=== PATIENT | male | born 1985 | race Caucasian/White ===

== ENCOUNTER 2016-11-02 01:38 | Emergency (ER) | payer OTHER ==
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
[2016-11-02 02:29] VITALS: BP 121/87; PULSE 91; TEMP 98.4; BMI 24.4
== END 2016-11-02 02:47 | disposition home or self-care (01) ==
LOC: JER 01:38
DX: J70.5 Respiratory conditions due to smoke inhalation (principal); S46.912A Strain of unspecified muscle, fascia and tendon at shoulder and upper arm level, left arm, initial encounter; M79.662 Pain in left lower leg; X02.1XXA Exposure to smoke in controlled fire in building or structure, initial encounter; Y93.89 Activity, other specified; Y92.89 Other specified places as the place of occurrence of the external cause; Y99.0 Civilian activity done for income or pay
CPT/HCPCS: 99281-25

== ENCOUNTER 2018-06-16 15:46 | Emergency (ER) | payer BC, OTHER ==
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
[2018-06-16] MEDS ORDERED: IBUPROFEN 400 MG TABLET (FP) PO ONE ×2 (15:54→15:59)
[2018-06-16 15:57] VITALS: BP 133/84; PULSE 79; TEMP 98.4; BMI 24.7
[2018-06-16] MEDS ORDERED: DIPHTH,PERTUSS(ACELL),TET 0.5 ML DISP.SYRIN IM ONE (16:03)
== END 2018-06-16 16:40 | disposition home or self-care (01) ==
LOC: FER 15:46
DX: T25.021A Burn of unspecified degree of right foot, initial encounter (principal); W22.8XXA Striking against or struck by other objects, initial encounter; Y93.89 Activity, other specified; Y92.89 Other specified places as the place of occurrence of the external cause
CPT/HCPCS: 99283-25

== ENCOUNTER 2018-06-17 20:37 | Emergency (ER) | payer BC, OTHER ==
[2018-06-17 20:46] VITALS: BP 148/71; PULSE 77; TEMP 98.3; BMI 24.1
--- NOTE | 2018-06-17 20:48 | PDOC ---
History of Present Illness - General History Source: Patient Exam Limitations: No Limitations - History of Present Illness Initial Comments: 06/17/18 21:12 The patient is a 33 year old male, with no significant PMH, who presents to the emergency department complaining of possible Lyme disease. The patient notes a red te-moak with a red dot in the center located to the left hand for the past few days. The patient denies pruritus or pain to the left hand. The patient denies chest pain, shortness of breath, headache and dizziness. Denies fever, chills, nausea, vomit. PAST MEDICAL HISTORY: no significant history PAST SURGICAL HISTORY: no significant history FAMILY HISTORY: no pertinent history SOCIAL HISTORY: Pt lives with family and is employed. MEDICATIONS: reviewed ALLERGIES: As per nursing notes Adult ROS General: No fevers or chills, no weakness, no weight loss HEENT: No change in vision. No sore throat,. No ear pain CardioVascular: No chest pain or shortness of breath Respiratory:No cough, or wheezing. Gastrointestinal: no nausea, vomiting, diarrhea or constipation, No rectal bleeding Genitourinary: No dysuria, hematuria, or frequency Musculoskeletal: No joint or muscle pain or swelling Neurologic: No headache, vertigo, dizziness or loss of consciousness Psychiatric: nor depression Skin: +Red rodrigo to left hand. Endocrine: no increased thirst or abnormal weight change Allergic: no skin or latex allergy All other systems reviewed and normal Basic PE GENERAL: The patient is awake, alert, and fully oriented, in no acute distress. HEAD: Normal with no signs of trauma. EYES: Pupils equal, round and reactive to light, extraocular movements intact, sclera anicteric, conjunctiva clear. EXTREMITIES: Normal range of motion, no edema. NEUROLOGICAL: Normal speech, normal gait. PSYCH: Normal mood, normal affect. SKIN: + Left palm small well defined te-moak approximately 1 cm in diameter with a small red dot in the center. No tenderness, swelling or raised component to it. Appears to be an imprint of an object. <Sandhya Jackson - Last Filed: 06/17/18 21:13> - General History Source: Patient Exam Limitations: No Limitations - History of Present Illness Initial Comments: 06/17/18 21:14 A portion of this note was documented by scribe services under my direction. I have reviewed the details of the note, within reason, and agree with the documentation. The case summary and management plan written by me. Assessment and plan: This is a 33-year-old male who comes in with a well- defined imprint type impression of his left palm. Patient said it is been there approximately a half hour and he just noticed it. He said there was no pain no discomfort no itching and no history of a tick bite. It does have a bulls eye appearance however it is so small and on his palm that it appears to be more an imprint of an object. A Lyme titer was sent just in case however I'm not starting him on doxycycline as it is very unlikely that he would have a tick on his palm long enough to give him Lyme disease without him noticing it. Patient was discharged home with follow-up with his doctor for the results of his Lyme test <Oma Ho I - Last Filed: 06/17/18 21:15> - General Chief Complaint: Redness To Affected Area Stated Complaint: RED RODRIGO/REDNESS ON LEFT HAND Time Seen by Provider: 06/17/18 20:39 Past History <Sandhya Jackson - Last Filed: 06/17/18 21:13> - Past Medical History COPD: No - Immunization History Td Vaccination: (2016) - Suicide/Smoking/Psychosocial Hx Smoking History: Never smoked Have you smoked in the past 12 months: No Hx Alcohol Use: No Drug/Substance Use Hx: No Substance Use Type: None <Oma Ho I - Last Filed: 06/17/18 21:15> - Past Medical History Allergies/Adverse Reactions: Allergies Allergy/AdvReac Type Severity Reaction Status Date / Time No Known Allergies Allergy Verified 06/17/18 20:38 Home Medications: Ambulatory Orders NK [No Known Home Medication] 04/06/15 *Physical Exam - Vital Signs Last Vital Signs Temp Pulse Resp BP Pulse Ox 98.3 F 77 18 148/71 97 06/17/18 20:37 06/17/18 20:37 06/17/18 20:37 06/17/18 20:37 06/17/18 20:37 <Sandhya Jackson - Last Filed: 06/17/18 21:13> - Vital Signs Last Vital Signs Temp Pulse Resp BP Pulse Ox 98.3 F 77 18 148/71 97 06/17/18 20:37 06/17/18 20:37 06/17/18 20:37 06/17/18 20:37 06/17/18 20:37 <Oma Ho I - Last Filed: 06/17/18 21:15> *DC/Admit/Observation/Transfer - Attestations Scribe Attestion: 06/17/18 21:13 Documentation prepared by Sandhya Jackson, acting as medical instrument cable fabricator for Oma Ho MD. <Sandhya Jackson - Last Filed: 06/17/18 21:13> - Discharge Dispostion Decision to Admit order: No <Oma Ho I - Last Filed: 06/17/18 21:15> Diagnosis at time of Disposition: Skin spots, red - Discharge Dispostion Disposition: HOME Condition at time of disposition: Stable - Referrals Referrals: José Miguel Torrez MD [Primary Care Provider] - - Patient Instructions Additional Instructions: Return to the emergency department immediately with ANY new, persistent or worsening symptoms. Continue any medications as previously prescribed by your physician. You should follow up with your primary doctor as soon as possible regarding today's emergency department visit. . Please make sure your doctor reviews the results of your emergency evaluation. Thank you for coming to the Emergency Department today for your care. It was a pleasure to see you today. Please note that your evaluation is INCOMPLETE until you follow-up with your doctor. - Post Discharge Activity
== END 2018-06-17 21:06 | disposition home or self-care (01) ==
LOC: FER 20:37
DX: R23.9 Unspecified skin changes (principal)
CPT/HCPCS: 36415; 86618; 99283-25